=== PATIENT | female | born 1975 | race Caucasian/White ===

== ENCOUNTER 2020-07-17 14:16 | Outpatient (CLI) | payer OTHER, SELFPAY | END 2020-07-17 14:17 | disposition home or self-care (01) | LOC: ANHSURGERY 14:19 | PROVIDERS: Visit Provider Obstetrics & Gynecology | DX: D21.9 Benign neoplasm of connective and other soft tissue, unspecified (principal) | CPT/HCPCS: 36415; 86850; 86900; 86901 ==

== ENCOUNTER 2020-08-26 02:46 | Outpatient (CLI) | payer BC, SELFPAY ==
[2020-08-26 18:16] LABS: SARS-CoV-2 RNA PCR Negative
== END 2020-08-26 02:47 | disposition home or self-care (01) ==
PROVIDERS: Visit Provider Obstetrics & Gynecology
DX: Z01.812 Encounter for preprocedural laboratory examination (principal); Z20.828 Contact with and (suspected) exposure to other viral communicable diseases
CPT/HCPCS: 87635; C9803; U0003

== ENCOUNTER 2020-08-28 00:30 | Day surgery (SDC) | payer BC, SELFPAY ==
[2020-07-14 14:55] VITALS: BMI 18.3
[2020-08-25 14:03] VITALS: BMI 16.8
[2020-08-28] VITALS (15 sets, daily range): BP systolic 104–129; BP diastolic 48–68; PULSE 62–84; RESP 11–20; TEMP 36.2–36.8; O2SAT 96–100
[2020-08-28] MEDS: ACETAMINOPHEN 500 MG TABLET 1000 MG PO (10:14)
--- NOTE | 2020-08-28 10:25 | WPDANESEPPF ---
Anes - Initial Pre Proc Eval Procedure: Operation Date: 08/28/20 12:00 Proposed Procedures p Total Laparoscopic Hysterectomy - Josefa Astudillo MD Date/Time: 08/28/20 10:25 Surgeon: Josefa Astudillo MD Pre Op Diagnosis: Leiomyoma of Uterus Patient Data Age: 45 Gender: F Height: 1.6 m Weight: 41.2 kg Allergies Allergy/AdvReac Type Severity Reaction Status Date / Time cortisone Allergy Severe Rash Verified 08/28/20 10:13 hydrocortisone Allergy Severe Rash Verified 08/28/20 10:13 Home Medications Medication Instructions Recorded Confirmed Type No Home Medications 07/14/20 08/28/20 History Patient hx anesthesia problems: none Family hx anesthesia problems: none PMFSH Past Medical History Medical History (Updated 08/27/20 @ 14:27 by Bryce Espinoza DO) GERD (gastroesophageal reflux disease) MVP (mitral valve prolapse) Surgical History Surgical History (Updated 08/27/20 @ 14:27 by Bryce Espinoza DO) History of tubal ligation Social History Social History Smoking packs per day: 0.25 Smoking cigarettes per day: 5.0 Years smoked: 30 Smoking pack-years: 7.50 Smoking status: Current every day smoker Tobacco type: cigarettes Alcohol intake: never Substance use: never Substance use type: marijuana Last use: 08/25/20 Living arrangements: with family Gender identity (if verbalized by the patient): Female Sexual Orientation (if Verbalized by the Patient): Straight or Heterosexual Spiritual care concerns: No Anes - Eval Final PreProcedure Day of Procedure 08/28/20 10:25 Patient weight: thin Heart: regular rate and rhythm Lungs: clear to auscultation and normal air movement Airway: Mallampati scale class II Neurological: alert and oriented Last oral intake: >/= 8 hours ASA classification: II Emergent: no Anesthetic plan: proceed Anesthesia type and monitoring: general ETT and standard monitoring Informed Consent: The patient's anesthetic plan and its attendant risks and benefits were discussed with the patient/family/POA. Questions were solicited and answers provided to the satisfaction of the patient/family/POA.
[2020-08-28] MEDS: LACTATED RINGERS 1,000 ML 30 ML IV CONT ×2 (10:47→14:30)
[2020-08-28] MEDS: KETOROLAC 15 MG/ML VIAL (*BKC) IV PUSH (10:47)
--- NOTE | 2020-08-28 12:11 | WPDHPUPDATE1 ---
History and Physical Update Update Date/Time: 08/28/20 12:11 History and Physical has been reviewed, including an updated exam of the patient. There are NO changes in the patient's condition. Risks, benefits, and alternatives have been discussed and questions answered. Patient agrees to proceed with procedure.
[2020-08-28] MEDS: ceFAZolin 2 GM/D5W 50 ML 2 GM/50 ML BAG IVPB (12:15)
--- NOTE | 2020-08-28 14:34 | PM.PROC ---
Procedure Note - Detailed Date of procedure: 08/28/20 Pre-op diagnosis: Leiomyoma of Uterus Myoma, Menorrhagia, Dysmenorrhea Post-op diagnosis: same Procedure performed: Total laparoscopic hysterectomy. Description of procedure: The patient was taken to the operating room. She was prepped and draped in the dorsal lithotomy position. A speculum was placed in the vagina. The cervix was grasped with a tenaculum. Stay sutures were placed at 3 and 9:00 a.m. of 0 Vicryl. The stay sutures were brought through the Dmitry up. The KIAN manipulator was placed in the vagina with a fixed Dmitry cup. The cup was then pushed up around the cervix. The sutures were tied to the handle of the KIAN manipulator. A 5 mm incision was made on the abdominal skin of the left upper quadrant using a scalpel. A 5 mm trocar was inserted into the intra-abdominal cavity under direct visualization the scope. Pneumoperitoneum was achieved. An 11 mm incision was made in the left lower quadrant of the abdomen with a scalpel. A 11 mm trocar was inserted into the intra-abdominal cavity under direct visualization the scope. A 5 mm periumbilical incision was made. A 5 mm scope was placed into the intra-abdominal cavity under direct visualization of the scope. The suspensory ligament of the ovary was cauterized and transected with ligature cautery in a bilateral fashion. The fallopian tubes were cauterized and transected in a bilateral fashion with LigaSure cautery. The round ligaments were cauterized and transected in bilateral fashion with LigaSure cautery. The round ligaments were cauterized and transected bilaterally with LigaSure cautery. The broad ligaments were cauterized and transected along the lateral aspects of the uterus down the level of the uterine arteries. A bladder flap was created using sharp and blunt dissection. The ureters were dissected out bilaterally down to the level of the uterine arteries. They could be visualized from the pelvic brim down the uterine arteries. Staying very close to the cervix the parametrium was cauterized transected in a stepwise fashion down to the level of the Dmitry cup. The Bladder flap was moved distally over the Dmitry cup using sharp and blunt dissection. The impression of the entire cup was visualized around the cervix. An incision was made with unipolar cautery down under the Dmitry cup creating a colpotomy incision all the way around the cervix. The uterus tubes and ovaries were taken out through the vagina. A pneumo occluder was placed in the vagina. The vagina was closed with 0 V lock suture in a running fashion. The ureters were identified again and found to be intact to the level of the uterine arteries. The pelvis was irrigated with a copious amount of antibiotic irrigation. The pneumoperitoneum was reduced. The trocars were removed. The skin was closed subcuticular 4 Monocryl covered with Dermabond. The pneumo occluder was removed from the vagina. The vagina was irrigated with Betadine. The patient tolerated the procedure well. She was taken to the recovery room in stable condition. Sponge lap and needle counts were correct x2. Anesthesia: GETA Surgeon: Josefa Astudillo MD Estimated blood loss (mL): 200 Drains: No Packing: No Pathology: yes Complications: No immediate complications Condition: stable Disposition: PACU Findings: Grossly normal appearing tubes and ovaries. Uterus - XXX
[2020-08-28] MEDS: ONDANSETRON INJ 4 MG/2 ML VIAL IV PUSH ×2 (15:29→20:47)
[2020-08-28] MEDS: fentaNYL CITRATE INJ (*CRX) 100 MCG/2 ML VIAL 25 MCG IV PUSH (15:29)
--- NOTE | 2020-08-28 15:49 | PC.NURSE ---
Pt transferred to room 289 per bed. Alert and oriented x3.
[2020-08-28] MEDS: DEXTROSE 5%/0.45% SOD CHL 1,000 ML 125 ML IV CONT ×2 (16:45→23:01)
[2020-08-28] MEDS: KETOROLAC 30 MG/ML VIAL (*BKC) IV PUSH (16:45)
[2020-08-28] MEDS: HYDROcodone/acetaminophen (*CRX) 5-325 MG TABLET 1 TAB PO ×2 (18:14→22:59)
[2020-08-29] MEDS: SIMETHICONE 80 MG TAB.CHEW (03:25)
[2020-08-29 05:00] VITALS: BP 115/61; PULSE 79; RESP 16; TEMP 37; O2SAT 100
[2020-08-29] MEDS: SIMETHICONE 80 MG TAB.CHEW PO ×2 (06:19→08:16)
[2020-08-29 07:10] VITALS: BP 109/62; PULSE 69; RESP 18; TEMP 37.2
--- NOTE | 2020-08-29 07:50 | PM.GYNPNOP ---
EKG MONITOR TECH - A/P Postoperative Procedures: Procedures Operation Date: 08/28/20 12:00 Actual Procedures Side Surgeon p Total Laparoscopic Hysterectomy, Left Salpingoopherectomy Not Applicable Josefa Astudillo MD Postoperative day: 1 Postoperative status: doing well and other (Tollerating Regular Diet) Postoperative plan: routine post-op care and discharge Time Spent With Patient Time: Total time spent is greater than 50% in coordination of care (as documented) at patient's floor/unit and/or counseling patient: Time with patient: 15 - 25 minutes EKG MONITOR TECH- PN:Subj Post-Op Subjective Date/time seen: 08/29/20 07:50 Subjective: patient reports feeling better, pain is well controlled and patient is tolerating oral intake Exam Const: General: cooperative, healthy appearing, comfortable and no acute distress Resp: Auscultation: no crackles, no rales, no rhonchi and no wheezes Cardio: Rhythm: regular rhythm Heart sounds: no click and no murmurs GI: Inspection: non-distended Auscultation: normal bowel sounds Other: Incisions - CDI Extrem: General: normal to inspection, no pedal edema and no calf tenderness EKG MONITOR TECH - PN: Obj Data Vital Signs Vital Signs: Vital Signs - 24 hr 08/28/20 10:49 08/28/20 14:30 08/28/20 14:45 Temperature 97.7 F 97.8 F Pulse Rate 72 73 84 Respiratory Rate 16 16 16 Blood Pressure 119/48 L 129/67 114/66 Pulse Oximetry 100 100 100 08/28/20 15:00 08/28/20 15:15 08/28/20 15:30 Temperature Pulse Rate 64 62 67 Respiratory Rate 15 13 11 L Blood Pressure 117/61 127/68 112/64 Pulse Oximetry 100 100 98 08/28/20 15:39 08/28/20 16:06 08/28/20 16:15 Temperature 97.1 F L Pulse Rate 68 64 70 Respiratory Rate 13 18 18 Blood Pressure 109/60 113/59 L 110/53 L Pulse Oximetry 97 97 97 08/28/20 16:30 08/28/20 17:00 08/28/20 17:30 Temperature Pulse Rate 71 69 77 Respiratory Rate 18 18 20 Blood Pressure 107/56 L 107/57 L 113/56 L Pulse Oximetry 96 97 98 08/28/20 18:30 08/28/20 19:30 08/28/20 22:15 Temperature 97.4 F L 98.2 F Pulse Rate 67 81 73 Respiratory Rate 16 16 Blood Pressure 104/59 L 108/58 L 117/63 Pulse Oximetry 97 100 08/29/20 05:00 08/29/20 07:10 Temperature 98.6 F 99.0 F Pulse Rate 79 69 Respiratory Rate 16 18 Blood Pressure 115/61 109/62 Pulse Oximetry 100 Intake/Output Intake/Output: Intake & Output 08/26/20 08/27/20 08/28/20 08/29/20 23:59 23:59 23:59 23:59 Intake Total 2650 800 Output Total 525 1850 Balance 2125 -1050 Meds/Results Medications: Active Medications Generic Name Dose Route Start Last Admin Trade Name Freq PRN Reason Stop Dose Admin Hydrocodone Bitart/Acetaminophen 1 tab 08/28/20 15:46 08/28/20 22:59 Hydrocodone/Acetaminophen (*Crx) 5-325 Mg Tablet PO 1 tab Q3H PRN Administration Pain Rated 5 or Less Hydrocodone Bitart/Acetaminophen 1 tab 08/28/20 15:46 Hydrocodone/Acetaminophen (*Crx) 10-325 Mg Tablet PO Q3H PRN Pain Rated 6 or Greater Ibuprofen 600 mg 09/02/20 16:00 Ibuprofen 600 Mg Tablet PO Q6H PRN Cramping Naloxone HCl 0.1 mg 08/28/20 15:46 Naloxone Hcl 0.4 Mg/Ml Vial IV PUSH Q2M PRN Respiratory rate less than 10 Ondansetron HCl 4 mg 08/28/20 15:46 08/28/20 20:47 Ondansetron Inj 4 Mg/2 Ml Vial IV PUSH 4 mg Q6H PRN Administration Nausea And Vomiting Simethicone 80 mg 08/29/20 03:26 08/29/20 06:19 Simethicone 80 Mg Tab.Chew PO 80 mg Q2HR PRN Administration Gas Discomfort Labs Labs: Laboratory Results - last 24 hr 08/28/20 10:39 Blood Type O Positive Antibody Screen Negative
[2020-08-29] MEDS: HYDROcodone/acetaminophen (*CRX) 5-325 MG TABLET 1 TAB PO (08:16)
[2020-08-29] MEDS: DOCUSATE SODIUM 100 MG CAPSULE PO (08:43)
== END 2020-08-29 09:18 | disposition home or self-care (01) ==
LOC: ANHSURGERY 10:03 → ANHOB2 08-29 08:20
PROVIDERS: Visit Provider Obstetrics & Gynecology
PROC: 0UT9FZZ Resection of Uterus, Via Natural or Artificial Opening With Percutaneous Endoscopic Assistance (ICD-10-PCS; CPT 58571; principal; 2020-08-28 12:00)
DX: D25.9 Leiomyoma of uterus, unspecified (principal); N92.0 Excessive and frequent menstruation with regular cycle; N94.6 Dysmenorrhea, unspecified; I34.1 Nonrheumatic mitral (valve) prolapse; K21.9 Gastro-esophageal reflux disease without esophagitis; F17.210 Nicotine dependence, cigarettes, uncomplicated; F12.90 Cannabis use, unspecified, uncomplicated
CPT/HCPCS: 58571; 36415; 86850; 86900; 86901; 88307; 99199; A9270; J0690; J1100; J1170; J1885; J2250; J2405; J2704; J2710; J3010; J7030; J7120

== ENCOUNTER 2020-09-05 13:10 | Outpatient (CLI) | payer BC, SELFPAY ==
--- NOTE | ~2020-09-05 | CT_ITS ---
EXAMINATION: CT abdomen pelvis w con DATE: 09/05/2020 13:55 INDICATION: Postoperative pain TECHNIQUE: Computed tomography (CT) of the abdomen and pelvis was performed with 100 mL Omnipaque-350 intravenous contrast. Automated exposure control and iterative reconstruction technique were employe d. The dose-length product was 154.36 mGy-cm. COMPARISON: 06/11/2007 FINDINGS: Minimal discoid atelectasis in the left lower lobe. Visualized inferior heart is normal. No pericardi al or pleural effusion. Focal hepatic steatosis at the ligamentum teres. Gallbladder, spleen, pancrea s and bilateral adrenal glands are normal. Bilateral low-attenuation renal cysts the largest measurin g 11 mm the upper pole of the left kidney and 8 mm at the lower pole of the right kidney. There are s everal gas and fluid-filled loops of bowel without prashanth dilation. This extends to the distal 15 cm o f ileum with a diameter gradually decreases and where there is mild edematous wall thickening there i s additional mild wall thickening along the distal colon. Bladder is unremarkable. The uterus is not identified and has likely been surgically resected. The right gonadal vessels extending to a 2.5 cm r im-enhancing lesion in the right pelvis consistent with a right ovarian cyst. Abscess is considered l ess likely. Small amount of additional nonloculated free fluid in the pelvis. Minimal likely postoper ative free intraperitoneal gas in the nondependent left upper quadrant with large amount of gas in th e subcutaneous fat of the anterior left abdomen and pelvis. No pathologically enlarged abdominal or p elvic lymphadenopathy. Bones are unremarkable. IMPRESSION: 1. Postoperative changes suggesting recent hysterectomy with postoperative ileus. 2. Edematous wall thickening of the distal 15 cm the ileum and of the sigmoid colon which could be ei ther reactive related to prior surgery, infectious in etiology or less likely due to inflammatory bow el disease or ischemia. 2. 2.5 cm rim-enhancing cystic lesion at the right adnexa most likely a right ovarian cyst/follicle. Differential would include less likely abscess. Reviewed, dictated and finalized at location B. IMPRESSION: 1. Postoperative changes suggesting recent hysterectomy with postoperative ileu s. 2. Edematous wall thickening of the distal 15 cm the ileum and of the sigmoid c olon which could be either reactive related to prior surgery, infectious in lyn ology or less likely due to inflammatory bowel disease or ischemia. 2. 2.5 cm rim-enhancing cystic lesion at the right adnexa most likely a right o varian cyst/follicle. Differential would include less likely abscess.
== END 2020-09-05 13:11 | disposition home or self-care (01) ==
PROVIDERS: Visit Provider Obstetrics & Gynecology
DX: G89.18 Other acute postprocedural pain (principal); R93.89 Abnormal findings on diagnostic imaging of other specified body structures; Z90.710 Acquired absence of both cervix and uterus
CPT/HCPCS: 74177; Q9967

== ENCOUNTER 2022-08-11 10:12 | Emergency (ER) | payer SELFPAY ==
[2022-08-11 10:26] VITALS: BP 107/65; PULSE 86; RESP 17; TEMP 36.9; O2SAT 99
--- NOTE | 2022-08-11 10:26 | ED.GENADULT ---
HPI - General Adult General Chief complaint: Urogenital-Female Stated complaint: UTI Time Seen by Provider: 08/11/22 10:14 Source: RN notes reviewed History of Present Illness HPI narrative: Patient presents emergency room from home for dysuria. Patient states that symptoms began 2 days ago states has been having pain with urination as well as noting some blood in her urine she states she does have some mild lower back pain bilaterally with the symptoms she denies any fevers or chills abdominal pain nausea vomiting diarrhea or any other Related Data Allergies Allergy/AdvReac Type Severity Reaction Status Date / Time cortisone Allergy Severe Rash Verified 08/11/22 10:31 hydrocortisone Allergy Severe Rash Verified 08/11/22 10:31 Review of Systems Review of Systems: Gen.: Denies fevers or chills ENT: Denies congestion Respiratory: Denies shortness of breath or cough CV: Denies chest pain GI: Denies abdominal pain nausea, emesis see HPI Musculoskeletal: Reports low back pain Neuro: Denies headache or weakness Skin: Denies rash Except as documented, all other systems reviewed and negative [facility] Past Medical History Medical History GERD (gastroesophageal reflux disease) MVP (mitral valve prolapse) Surgical History Surgical History (Updated 08/27/20 @ 14:27 by Bryce Espinoza DO) History of tubal ligation Social History Social History Smoking packs per day: 0.25 Smoking cigarettes per day: 5.0 Years smoked: 30 Smoking pack-years: 7.50 Smoking status: Current every day smoker Tobacco type: cigarettes Alcohol intake: never Substance use: never Substance use type: marijuana Last use: 08/25/20 Gender identity (if verbalized by the patient): Female Sexual Orientation (if Verbalized by the Patient): Straight or Heterosexual Spiritual care concerns: No Exam Narrative: APPEARANCE: No acute distress, nontoxic, resting in bed EYES: EOMI HEENT: Normocephalic, atraumatic, OMM RESPIRATORY: No respiratory distress Clear to auscultation bilaterally with no rhonchi wheezing or rales. CARDIOVASCULAR: Regular rate and rhythm without murmurs rubs or gallops. ABDOMINAL: Soft, nontender, nondistended, no rebound or guarding MUSCULOSKELETAl: Moves all extremities. No clubbing, cyanosis or edema. NEURO: Awake and alert. Following commands, speech normal, no focal deficits SKIN:: Warm, dry. No rashes lesions or abrasions PSYCHIATRIC: Normal affect/mood, Course Course Emergency Course: Discussed with patient results of workup and diagnosis. Discussed need for follow-up with primary care, proper use of medication, and reasons to return to the emergency department. Patient understands and agrees to current treatment plan Vital Signs Vital signs: Vital Signs Temperature 98.4 F 08/11/22 10:26 Pulse Rate 86 08/11/22 10:26 Respiratory Rate 17 08/11/22 10:26 Blood Pressure 107/65 08/11/22 10:26 Pulse Oximetry 99 08/11/22 10:26 Oxygen Delivery Room Air 08/11/22 10:26 Temperature 98.4 F 08/11/22 10:26 Pulse Rate 86 08/11/22 10:26 Respiratory Rate 17 08/11/22 10:26 Blood Pressure 107/65 08/11/22 10:26 Pulse Oximetry 99 08/11/22 10:26 Oxygen Delivery Room Air 08/11/22 10:26 Medical Decision Making Vital Signs Vital Signs: Vital Signs Temperature 98.4 F 08/11/22 10:26 Pulse Rate 86 08/11/22 10:26 Respiratory Rate 17 08/11/22 10:26 Blood Pressure 107/65 08/11/22 10:26 Pulse Oximetry 99 08/11/22 10:26 Oxygen Delivery Room Air 08/11/22 10:26 Temperature 98.4 F 08/11/22 10:26 Pulse Rate 86 08/11/22 10:26 Respiratory Rate 17 08/11/22 10:26 Blood Pressure 107/65 08/11/22 10:26 Pulse Oximetry 99 08/11/22 10:26 Oxygen Delivery Room Air 08/11/22 10:26 Lab Data Labs: Lab Results 08/11/22 Range/U
[2022-08-11 10:47] LABS: Appearance Urine Clear (Clear); Bilirubin Urine Negative (Negative); Blood Urine 2+ (Negative); Color Urine Yellow (Yellow); Glucose Urine UA Negative (Negative); Ketones Urine Negative (Negative); Leukocyte Esterase Ur Trace LEU/UL (Negative); Nitrate Urine Negative (Negative); Protein Urine 2+ mg/dL (Negative); Specific Grav Ur 1.025 (1.001-1.035); Urobilinogen Urine 0.2 mg/dL (<2.0)
[2022-08-11 10:57] LABS: Mucus Urine Heavy /lpf; Squamous Epithelial Cell Urine Few /hpf (Few); WBC Urine 16-20 /hpf
[2022-08-11 10:58] LABS: Add Urine Microscopic? YES
[2022-08-11] MEDS: NITROFURANTOIN MONOHYD MACROCR 100 MG CAP PO (11:13)
[2022-08-11] MEDS: PHENAZOPYRIDINE HCL 100 MG TABLET 200 MG PO (11:13)
[2022-08-11 11:19] VITALS: RESP 16
== END 2022-08-11 11:19 | disposition home or self-care (01) ==
PROVIDERS: Emergency Provider Emergency Medicine
DX: N39.0 Urinary tract infection, site not specified (principal); K21.9 Gastro-esophageal reflux disease without esophagitis; I34.1 Nonrheumatic mitral (valve) prolapse; F17.210 Nicotine dependence, cigarettes, uncomplicated; F12.90 Cannabis use, unspecified, uncomplicated
CPT/HCPCS: 81001; 81025; 87077; 87086; 87088; 87186; 99283; A9270